=== PATIENT | male | born 1965 | race Caucasian/White ===

== ENCOUNTER 2019-03-20 00:23 | Emergency (ER) | payer BC ==
--- NOTE | 2019-03-20 03:38 | RADIOLOGY REPORT (SQ) ---
EXAM: X-ray knee four views CLINICAL DATA: 53-year-old male with medial tenderness TECHNICAL DATA: Four x-ray views of the right knee were performed on 03/20/2019 at 3:19 AM. COMPARISONS: None FINDINGS: There is no evidence of fracture or dislocation. There is mild narrowing of the knee joint slightly greater along the medial joint compartment and there is minimal hypertrophic spurring of the medial tibial plateau. There is an enthesophyte arising from the anterior superior pole of the patella. There is minimal hypertrophic spurring along the posterior superior pole of the patella. No focal lytic or sclerotic bone lesions are identified. Bone mineralization is normal. No focal soft tissue abnormalities are identified. There is no evidence of a joint effusion. There appear to be faint calcifications within the knee joint suggesting underlying chondrocalcinosis. IMPRESSION: No evidence of acute osseous injury involving the right knee. There are minimal degenerative changes as described above. Chondrocalcinosis is not excluded.
[2019-03-20] MEDS ORDERED: HYDROCODONE/ACETAMINOPHEN 5-325 MG TABLET PO ONE (06:33)
[2019-03-20] MEDS ORDERED: KETOROLAC TROMETHAMINE 10 MG TABLET PO ONE (06:33)
--- NOTE | 2019-03-20 06:38 | ER Document Report ---
ED General - General Chief Complaint: Knee Pain Stated Complaint: RIGHT KNEE PAIN Time Seen by Provider: 03/20/19 06:06 Mode of Arrival: Ambulatory Information source: Patient Notes: 53-year-old male with hypertension presents with complaint of right knee pain. Patient states pain started 1 day prior to arrival after coming home from work. 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 Patient's pain is on the medial aspect and described as a an intermittent aching pain that is worse with walking or bending. He denies any leg swelling, recent travel, recent surgery, history of PE, DVT. TRAVEL OUTSIDE OF THE [place] IN LAST 30 DAYS: No - HPI Onset: Yesterday Onset/Duration: Gradual, Persistent Quality of pain: Achy, Burning, Throbbing Severity: Moderate Pain Level: 2 Associated symptoms: denies: Chest pain, Nonproductive cough, Fever, Hurts to breath, Leg swelling, Nausea, Vomiting, Shortness of breath Exacerbated by: Movement, Walking Relieved by: Remaining still Similar symptoms previously: No Recently seen / treated by doctor: No - Related Data Allergies/Adverse Reactions: cephalexin [From Keflex] Allergy (Verified 03/20/19 03:52) Past Medical History - General Information source: Patient, Relative - Social History Smoking Status: Never Smoker Chew tobacco use (# tins/day): No Frequency of alcohol use: Rare Drug Abuse: None Lives with: Spouse/Significant other Family History: Reviewed & Not Pertinent Patient has suicidal ideation: No Patient has homicidal ideation: No - Past Medical History Cardiac Medical History: Reports: Hx Hypertension Renal/ Medical History: Denies: Hx Peritoneal Dialysis Review of Systems - Review of Systems Notes: REVIEW OF SYSTEMS: CONSTITUTIONAL : Denies fever, chills, or sweats. Denies recent illness. Denies weight loss, recent hospitalizations. EENT: Denies visual changes, eye pain. Denies sore throat, oral lesions, difficulty swallowing. CARDIOVASCULAR: Denies chest pain. Denies palpitations. Denies lower extremity edema. RESPIRATORY: Denies cough. Denies shortness of breath, wheezing. GASTROINTESTINAL: Denies abdominal pain or distention. Denies nausea, vomiting, or diarrhea. Denies blood in vomitus, stools, or per rectum. Denies black, tarry stools. Denies constipation. GENITOURINARY: Denies difficulty urinating, painful urination, frequency, blood in urine, testicular pain or penile discharge. MUSCULOSKELETAL: Denies back or neck pain or stiffness. + joint pain SKIN: Denies rash, lesions or sores. HEMATOLOGIC : Denies easy bruising or bleeding. LYMPHATIC: Denies swollen glands. NEUROLOGICAL: Denies confusion or altered mental status. Denies loss of consciousness. Denies dizziness or lightheadedness. Denies headache. Denies weakness or paralysis. Denies problems difficulty with ambulation, slurred speech. Denies sensory loss, numbness, or tingling. Denies seizures. PSYCHIATRIC: Denies anxiety or stress. Denies depression, suicidal ideation, or Physical Exam - Vital signs Vitals: Temp Pulse Resp BP Pulse Ox 97.7 F 81 18 131/77 H 98 03/20/19 00:38 03/20/19 00:38 03/20/19 00:38 03/20/19 00:38 03/20/19 00:38 - Notes Notes: PHYSICAL EXAMINATION: GENERAL: Well-appearing, well-nourished and in no acute distress. HEAD: Atraumatic, normocephalic. EYES: Pupils equal round and reactive to light, extraocular movements intact, sclera anicteric, conjunctiva are normal. ENT: Nares patent, oropharynx clear without exudates. Moist mucous membranes. NECK: Normal range of motion, supple without lymphadenopathy LUNGS: Breath sounds clear to auscultation bilaterally and equal. No wheezes rales or rhonchi. HEART: Regular rate and rhythm without murmurs ABDOMEN: Soft, nontender, nondistended abdomen. No guarding, no rebound. No masses appreciated. Musculoskeletal: Normal range of motion, no pitting or edema. No cyanosis. Tenderness with palpation to the aspect of the right knee. No associated swelling, erythema. Calf nontender. Extensor mechanism intact. NEUROLOGICAL: Cranial nerves grossly intact. Normal speech, normal gait. Normal sensory, motor exams PSYCH: Normal mood, normal affect. SKIN: Warm, Dry, normal turgor, no rashes or lesions noted. Course - Re-evaluation Re-evalutation: 03/20/19 07:40 Knee X-Ray 03/20/19 01:52 IMPRESSION: No evidence of acute osseous injury involving the right knee. There are minimal degenerative changes as described above. Chondrocalcinosis is not excluded. Temp Pulse Resp BP Pulse Ox 97.7 F 63 17 139/87 H 99 03/20/19 00:38 03/20/19 06:51 03/20/19 06:51 03/20/19 06:51 03/20/19 06:51 53-year-old male presented with complaint of 1 day of right knee pain. Denies any injury. Vitals were reviewed and within normal limits. Patient does not appear toxic or dehydrated. He is in no acute distress. X-ray was obtained and shows degenerative changes as well as chondrocalcinosis. Patient was provided an Abdoulaye wrap, anti-inflammatory medications and crutches. Patient was evaluated and treated as appropriate for the patient's presenting symptoms and complaint, with consideration of any critical or life threatening conditions that may be associated with their obtained history and exam as noted above. All results were discussed with patient and his who is at the bedside patient provided the opportunity to ask questions, and express concerns. Patient was educated on treatments based on their presumed diagnosis as noted above. At this time we will discharge the patient with return precautions and follow-up recommendations. Verbal discharge instructions given a the bedside. Medication warnings reviewed. Patient is in agreement with this plan and has verbalized understanding of return precautions. After careful consideration I feel that that patient can be safely discharged from the emergency department, they were advised to followup with a primary care physician in 2-3 days. Dictation on this chart was performed using voice recognition software and may result in unintended grammatical, spelling, syntax or errors. - Vital Signs Vital signs: Temp Pulse Resp BP Pulse Ox 97.7 F 63 17 139/87 H 99 03/20/19 00:38 03/20/19 06:51 03/20/19 06:51 03/20/19 06:51 03/20/19 06:51 - Diagnostic Test Radiology reviewed: Image reviewed, Reports reviewed Discharge - Discharge Clinical Impression: Arthritis of knee, right, Chondrocalcinosis Condition: Good Disposition: HOME, SELF-CARE Instructions: Use of Crutches ([facility]), Ice & Elevation ([facility]), Suspected Internal Knee Injury ([facility]), Knee Immobilizing Splint ([facility]), Sprained Knee ([facility]) Prescriptions: Hydrocodone/Acetaminophen [[place] 5-325 mg Tablet] 1 tab PO Q6H #8 tablet Meloxicam [Mobic] 15 mg PO DAILY #14 tablet Forms: Elevated Blood Pressure, Return to Work
[2019-03-20 06:52] VITALS: BP 139/87
== END 2019-03-20 06:52 | disposition home or self-care (01) ==
LOC: ER 00:23
DX: M17.11 Unilateral primary osteoarthritis, right knee (principal); M11.20 Other chondrocalcinosis, unspecified site; M25.561 Pain in right knee; I10 Essential (primary) hypertension
CPT/HCPCS: 99283; 73564; J3490